=== PATIENT | male | born 1950 | race Two or more races ===

== ENCOUNTER 2017-02-23 03:28 | Emergency (ER) | payer MEDICARE, OTHER ==
[~2017-02-23] VITALS: Ht 177.8 cm; Wt 68.0 kg
--- NOTE | 2017-02-23 03:30 | NUR ---
TO BED 8 A 66 YO MALE PT BIBA#860, PT PER EMS WAS FOUND SLEEPING AT THE SUBWAY WITH A BOTTLE OF VODKA, +ETOH. PATIENT IS ALERT AND RESPONSIVE. VSS. NAD NOTED. NONDIAPHORETIC. PLACED ON VS MONITORING. SAFETY AND COMFORT MEASURES IN PLACE.
--- NOTE | 2017-02-23 04:03 | NUR ---
patient in radiology at this time.
--- NOTE | 2017-02-23 05:48 | NUR ---
patient is comfortably sleeping at this time. vss. nad noted.
--- NOTE | 2017-02-23 07:30 | NUR ---
PT WAS PUT ON RESTRAINTS, FOR DISRUPTING MEDICAL CARE AND RESTLESSNESS. MD ORDER OBTAINED.
--- NOTE | 2017-02-23 07:38 | NUR ---
Chris adame in ED - 02/23/17 at 1419 by EFREN Patient is resting comfortably in bed with eyes closed. Easily aroused. VSS
--- NOTE | 2017-02-23 09:30 | NUR ---
ACUTE MEDICAL RESTRAINTS DISCONTINUED, PT IS IN BED, RESTING COMFORTABLY, VSS, CIRCULATION CHECKED. SKIN INTACT.
--- NOTE | 2017-02-23 11:30 | NUR ---
Patient is resting comfortably in bed with eyes closed. Easily aroused. VSS
--- NOTE | 2017-02-23 15:28 | NUR ---
Patient is resting comfortably in bed with eyes closed. Easily aroused. VSS
--- NOTE | 2017-02-23 17:54 | NUR ---
MEAL TRAY GIVEN TO PT.
--- NOTE | 2017-02-23 19:01 | NUR ---
PT ALERT AND ORIENTED X 3, AMBULATORY WITH STEADY GAIT,
--- NOTE | 2017-02-23 19:03 | NUR ---
PT AMBULATED TO RESTROOM WITHOUT ASSISTANCE
[2017-02-23 19:21] VITALS: BP 120/67
== END 2017-02-23 19:22 | disposition home or self-care (01) ==
LOC: ER 03:29
DX: F10.10 Alcohol abuse, uncomplicated (principal); I10 Essential (primary) hypertension; E78.00 Pure hypercholesterolemia, unspecified; R41.82 Altered mental status, unspecified
CPT/HCPCS: 70450; 82962; 99284; A4606; Z7610

== ENCOUNTER 2017-07-14 03:29 | Emergency (ER) | payer OTHER ==
[~2017-07-14] VITALS: Ht 170.2 cm; Wt 78.9 kg
--- NOTE | 2017-07-14 03:35 | NUR ---
PT TO ER BED 14. BIBRA 860 FOR RIGHT RIB PAIN S/P GLF EALIER TODAY DENIES KO. NOTED ETOH. PT PLACED ON TOP LIFT SCOURER. VSS/RESP EVEN UNLABORED/NAD NOTED/SKIN WARM AND DRY/DENIES N-V-D/AFEBRILE/AOX4. AWAITING MD HOYOS.
--- NOTE | 2017-07-14 04:28 | NUR ---
XRAY AT BEDSIDE.
--- NOTE | 2017-07-14 07:13 | NUR ---
ENDORSED TO MICHELLE ELLIS FOR ZAINAB.
--- NOTE | 2017-07-14 07:14 | NUR ---
RECEIVED REPORT FOR ZAINAB.
--- NOTE | 2017-07-14 11:30 | NUR ---
PATIENT A/OX 3, AMBULATING WITH WALKER WITH STEADY GAIT. NO COMPLICATIONS NOTED. CLEAR FOR DISCHARGE PER MD.
--- NOTE | 2017-07-14 11:44 | NUR ---
Patient discharged to home in stable condition. Written and verbal after care instructions given. Patient verbalizes understanding of instruction. Provided bus tokens for transportation.
[2017-07-14 11:54] VITALS: BP 114/72
== END 2017-07-14 11:44 | disposition home or self-care (01) ==
LOC: ER 03:30
DX: F10.129 Alcohol abuse with intoxication, unspecified (principal); S20.211A Contusion of right front wall of thorax, initial encounter; I10 Essential (primary) hypertension; E78.00 Pure hypercholesterolemia, unspecified; Z98.890 Other specified postprocedural states; W18.00XA Striking against unspecified object with subsequent fall, initial encounter; Y93.89 Activity, other specified; Y92.89 Other specified places as the place of occurrence of the external cause; Y99.8 Other external cause status
CPT/HCPCS: 71100-TC; A4606; J7030; Z7610

== ENCOUNTER 2019-01-17 03:44 | Inpatient (IN) | payer MEDICAID, OTHER ==
[~2019-01-17] VITALS: Ht 175.3 cm; Wt 74.8 kg
--- NOTE | 2019-01-17 04:10 | NUR ---
PT BIBRA FROM [facility] FOR ETOH INTOXICATION. PT IS CONFUSED. A/OX2. ON ROOM AIR, BREATHING EVEN AND UNLABORED. UNCLEAR SPEECH NOTED. IN NO ACUTE RESPIRATORY DISTRESS. CONNECTED TO PULSE OX AND PAPER SORTER
[2019-01-17] MEDS ORDERED: PANTOPRAZOLE 40 MG VIAL ONE (04:29)
[2019-01-17] MEDS ORDERED: PANTOPRAZOLE 80 MG in IV NS 0.9% 500 ML IV ONE (04:30)
[2019-01-17] MEDS ORDERED: IV NS 0.9% 1,000 ML BAG IV ONE (04:30)
[2019-01-17 04:33] LABS: OCCULT BLOOD STOOL POSITIVE (NEGATIVE)
[2019-01-17 05:05] LABS: BASOPHILS # (AUTO) 0.1 /CMM (0.0-0.2); BASOPHILS % (AUTO) 1.2 % (0.0-2.0); EOSINOPHILS % (AUTO) 2.4 % (0.0-6.0); HEMATOCRIT 40 % (39-51); HEMOGLOBIN 13.5 g/dL (13.5-17.5); LYMPHOCYTES # (AUTO) 1.9 /CMM (0.8-4.8); LYMPHOCYTES % (AUTO) 36.7 % (20.0-44.0); MEAN CORPUSCULAR HGB CONC 34 g/dl (31.0-36.0); MEAN CORPUSCULAR VOLUME 102 fL (80-96); MONOCYTES # (AUTO) 0.6 /CMM (0.1-1.30); MONOCYTES % (AUTO) 11.9 % (2.0-12.0); NEUTROPHILS # (AUTO) 2.5 /CMM (1.8-8.9); NEUTROPHILS % (AUTO) 47.8 % (43.0-81.0); PLATELET COUNT (AUTO) 107 /CMM (150-450); RED BLOOD CELL COUNT(AUTO) 3.95 MIL/uL (4.5-6.0); WHITE BLOOD COUNT (AUTO) 5.3 K/uL (4.3-11.0)
[2019-01-17 05:16] LABS: ALBUMIN 3.7 g/dL (3.4-5.0); BILIRUBIN,DIRECT 0.1 mg/dL (0.0-0.2); BILIRUBIN,TOTAL 0.2 mg/dL (0.2-1.0); CALCIUM, SERUM 9.4 mg/dL (8.5-10.1); CREATININE 1.6 mg/dL (0.6-1.3); POTASSIUM 2.8 mmol/L (3.5-5.1); SALICYLATE 1.5 mg/dL (2.8-20.0); TOTAL PROTEIN, SERUM 8.4 g/dL (6.4-8.2)
[2019-01-17 05:25] LABS: THYROID STIMULATING HORMONE 1.318 uIU/mL (0.358-3.74)
--- NOTE | 2019-01-17 06:14 | NUR ---
REPORT GIVEN TO MARLENY MARTINEZ
[2019-01-17] MEDS ORDERED: Z GUARD REMEDY 2 OZ OINT TP PRN (06:30)
[2019-01-17] MEDS ORDERED: ZOLPIDEM TARTRATE 5 MG TABLET PO PRN (06:30)
[2019-01-17] MEDS ORDERED: MAG HYDROX/AL HYDROX/SIMETH 30 ML UDC PO PRN (06:30)
[2019-01-17] MEDS ORDERED: MAGNESIUM HYDROXIDE 30 ML UDC PO PRN (06:30)
[2019-01-17] MEDS ORDERED: ONDANSETRON HCL/PF 4 MG/2 ML VIAL IVP PRN (06:30)
[2019-01-17] MEDS ORDERED: ACETAMINOPHEN 325 MG TABLET PO PRN (06:30)
[2019-01-17 06:32] VITALS: BP 141/83
--- NOTE | 2019-01-17 06:32 | NUR ---
PT MOVED TO ROOM 111 VIA ACLS PROTOCOL IN STABLE CONDITION.
--- NOTE | 2019-01-17 06:58 | NUR ---
RN ADMITTING NOTE RECEIVED PT FROM ER, ETOH 420, AOX1, NC@2L/PM, POSSIBLY ABLE TOLERATE R/A, NO FACIAL GRIMANCING NOTED, NOTED MINOR SKIN ISSUES, ON COMING RN TO TAKE PHOTOS, PT CLEANED, IV SITE LFA#18G, ALL ADMITTING ORDERS ENTERED, AM RN WILL CONT' PLAN OF CARE.
--- NOTE | 2019-01-17 07:57 | NUR ---
RN OPENING NOTES RECEIVED PT FROM RN WILL FOLLOW UP WITH ADMISSION PT IS CURRENTLY SLEEPING WITH EQUAL CHEST RISE AND FALL NO OBVIOUS SIGNS OF DISTRESS NOTED AT PRESENT TIME. PT IS EASILY AROUSABLE BUT CONFUSED AT PRESENT TIME. WILL CONTINUE TO MONITOR. BED IS LOCKED AND IN LOWEST POSITION WITH CALL LIGHT IN REACH.
[2019-01-17 08:00] VITALS: BP 113/71
[2019-01-17] MEDS: POTASSIUM CL. PREMIX PERIPHER. 50 ML IV SCH ×3 (08:30→10:22)
[2019-01-17] MEDS: PANTOPRAZOLE 40 MG VIAL IV SCH ×2 (09:12→17:14)
[2019-01-17] MEDS: IV NS 0.9% 1,000 ML IV PRN ×2 (09:17→23:02)
--- NOTE | 2019-01-17 10:02 | NUR ---
DURING ASSESSMENT PT IS AWAKES AND CONTINUES TO FALL BACK ASLEEP WILL CONTINUE TO MONITOR
--- NOTE | 2019-01-17 11:00 | NUR ---
PT REMOVED IV. ANOTHER IV INSERTED IN RIGHT WRIST PT REFUSES IV FLUID AT PRESENT TIME. STATES HE NEEDS HIS WALKER AND GLASSES CAUSE HE HAS GLAUCOMA. PT WAS TOLD TO CALL STAFF BEFORE GETTING OUT OF BED HANDED THE CALL LIGHT PT IS CURRENTLY ASLEEP AT THE MOMENT.
[2019-01-17 11:56] LABS: HEMOGLOBIN 11.8 g/dL (13.5-17.5)
[2019-01-17 16:00] VITALS: BP 133/94
[2019-01-17] MEDS ORDERED: POTASSIUM CHLORIDE 20 MEQ TAB.PRT.SR PO ONE (16:30)
[2019-01-17] MEDS: LORAZEPAM INJ 2 MG/ML VIAL IV PRN (17:03)
--- NOTE | 2019-01-17 18:50 | NUR ---
RN CLOSING NOTES PT IN BED EATING DINNER. PT STILL REFUSING IV FLUIDS WANTS TO DRINK WATER INSTEAD. PT GIVING MORE HX HOWEVER STILL UNDER THE INFLUENCE AND BEGINS TO STATE HE NEEDS HIS GLASSES HE HAS GLAUCOMA. PT IS STILL A POOR HISTORIAN AT PRESENT TIME NEED TO FOLLOW UP PT BEGINS TO BECOME MORE ALERT. PT DENIES PAIN OR SOB AT PRESENT TIME. REPORT WILL BE GIVEN TO COAT JOINER LOCKSTITCH RN FOR ZAINAB.
--- NOTE | 2019-01-17 19:44 | NUR ---
MS RN RECEIVE PT IN BED PT AWAKE A/O X 4, STABLE AND NOT IN DISTRESS. NO SOB. NO C/O OF PAIN. WILL CONT TO MTR
[2019-01-17 20:00] VITALS: BP 145/64
[2019-01-17 21:25] VITALS: BP 145/64
[2019-01-18] MEDS: LORAZEPAM INJ 2 MG/ML VIAL IV PRN ×3 (01:03→20:31)
[2019-01-18 04:00] VITALS: BP 156/93
--- NOTE | 2019-01-18 06:12 | NUR ---
MS RN PT SLEPT WELL THROUGHOUT THE NIGHT. NO NAUSEA AND VOMITING AT THIS TIME. NO S/S OF WITHDRAWAL AT THIS TIME. PT COOPERATIVE WITH CARE. AM CARE RENDERED, KEPT CLEAN, DRY AND COMFORTABLE AT ALL TIMES. NEEDS ATTENDED AND ANTICIPATED. NO C/O OF PAIN. WILL ENDORSE TO NEXT SHIFT.
[2019-01-18] MEDS ORDERED: BRIN10DR EACHEYE (06:36)
[2019-01-18] MEDS ORDERED: TRAV5DRO EACHEYE (06:36)
[2019-01-18] MEDS ORDERED: BRIM5DRO11 OP (06:36)
--- NOTE | 2019-01-18 06:47 | NUR ---
PAGED AND SPOKE RELAYED HOSPITALIST DREW SCHWARTZ EYE DROPS. RECONCILED MEDICATION PT REMEMBERS HIS EYE DROP AND WANTED TO HAVE THEM. PER DREW HE WILL RECONCILE IT. NOTED AND WILL ENDORSE TO FF UP Addendum: 01/18/19 at 0706 by CORI SALEH RN PER DREW HE WILL LOOK AT HIS HOME MEDICATION
[2019-01-18 07:01] LABS: BASOPHILS % (AUTO) 0.7 % (0.0-2.0); EOSINOPHILS % (AUTO) 4.2 % (0.0-6.0); HEMATOCRIT 33 % (39-51); HEMOGLOBIN 11.3 g/dL (13.5-17.5); LYMPHOCYTES # (AUTO) 0.9 /CMM (0.8-4.8); LYMPHOCYTES % (AUTO) 17.9 % (20.0-44.0); MEAN CORPUSCULAR HGB CONC 34 g/dl (31.0-36.0); MEAN CORPUSCULAR VOLUME 100 fL (80-96); MONOCYTES # (AUTO) 0.5 /CMM (0.1-1.30); MONOCYTES % (AUTO) 10.1 % (2.0-12.0); NEUTROPHILS # (AUTO) 3.5 /CMM (1.8-8.9); NEUTROPHILS % (AUTO) 67.1 % (43.0-81.0); PLATELET COUNT (AUTO) 84 /CMM (150-450); RED BLOOD CELL COUNT(AUTO) 3.34 MIL/uL (4.5-6.0); WHITE BLOOD COUNT (AUTO) 5.2 K/uL (4.3-11.0)
[2019-01-18 07:40] LABS: ALBUMIN 2.9 g/dL (3.4-5.0); BILIRUBIN,DIRECT 0.2 mg/dL (0.0-0.2); CALCIUM, SERUM 8.3 mg/dL (8.5-10.1); CREATININE 0.8 mg/dL (0.6-1.3); PHOSPHORUS 2.8 mg/dL (2.5-4.9); POTASSIUM 3.5 mmol/L (3.5-5.1); TOTAL PROTEIN, SERUM 6.7 g/dL (6.4-8.2)
[2019-01-18 07:43] LABS: MAGNESIUM 1.2 mg/dL (1.8-2.4)
[2019-01-18 08:00] VITALS: BP 158/104
--- NOTE | 2019-01-18 08:09 | NUR ---
MS RN NOTES RECEIVED PT SITTING IN BED. A/OX4 ON ROOM AIR 92%. NO SIGNS OF DISCOMFORT AND PAIN NOTED AT THIS TIME. PT HAS R HAND SL PATENT AND FLUSHED WELL. SAFETY MEASURES IMPLEMENTED. BED AT THE LOWEST POSITION LOCKED, CALL LIGHT WITHIN REACH. WILL CONTINUE TO MONITOR.
[2019-01-18 08:27] LABS: CREATININE, URINE 134.5 MG/DL (30.0-125.0)
[2019-01-18] MEDS: PANTOPRAZOLE 40 MG VIAL IV SCH ×2 (08:39→17:42)
[2019-01-18 09:01] LABS: THYROID STIMULATING HORMONE 0.456 uIU/mL (0.358-3.74)
[2019-01-18 09:09] LABS: APPEARANCE,URINE Clear (CLEAR); BILIRUBIN,URINE Negative (NEGATIVE); BLOOD, URINE Negative Ery/uL (NEGATIVE); COLOR,URINE Yellow (YELLOW); KETONES,URINE Negative (NEGATIVE); LEUKOCYTE ESTERASE ,URINE Negative (NEGATIVE); NITRITE, URINE Negative (NEGATIVE); PROTEIN,URINE Negative (NEGATIVE); UGLUCOSE Negative (NEGATIVE)
[2019-01-18 09:53] LABS: EOSINOPHIL,URINE None Seen
[2019-01-18] MEDS: Magnesium 1GM/D5W 100ML PREMIX 100 ML IV SCH ×4 (11:42→16:16)
[2019-01-18 12:00] VITALS: BP 152/98
--- NOTE | 2019-01-18 12:31 | NUR ---
MS RN NOTES PER PATIENT STATEMENT HE IS FEELING ANXIOUS AND HAVE SHAKY HANDS AND FEET.REQUESTED ATIVAN PRN.
[2019-01-18 16:00] VITALS: BP 152/98
[2019-01-18 19:30] LABS: SERUM AMMONIA 17 umol/L (11-32)
[2019-01-18 19:35] LABS: LIPASE 308 U/L (73-393)
[2019-01-18 19:40] LABS: IRON, SERUM 56 ug/dl (50-175); TOTAL IRON BINDING CAPACITY 238 ug/dl (250-450)
--- NOTE | 2019-01-18 19:40 | NUR ---
MS RN NOTES, PATIENT IN BED ASLEEP AT THIS TIME, BUT EASILY AROUSES VERBAL/TACTILE STIMULI, AT ROOM AIR NO SOB/ACUTE DISTRESS OR DISCOMFORT NOTED, IV SITE DISLODGE, WILL START ANOTHER IV, ALL SAFETY MEASURES IMPLEMENTED, BED LOCKED AND IN LOWEST POSITION LOCKED, CALL LIGHT WITHIN REACH, WILL CONTINUE TO MONITOR CLOSELY.
[2019-01-18 20:00] VITALS: BP 157/100
--- NOTE | 2019-01-18 20:12 | NUR ---
MS RN NOTES PT IN BED SITTING COMFORTABLY. A/O X4 NO SIGNS OF SOB AND DISCOMFORT NOTED. COLLABORATED WITH DR. HERNANDEZ FOR HOME MEDICATION (EYE DROP) VIA PHONE CALL. ALL SAFETY MEASURES IMPLEMENTED, BED AT THE LOWEST POSITION LOCKED CALL LIGHT WITHIN REACH. RIGHT HAND SL FLUSHED WELL AND PATENT. REPORT GIVEN TO MARINE WORKSITE WELLNESS PRACTITIONER NURSE FOR ZAINAB.
[2019-01-19] VITALS (7 sets, daily range): BP systolic 126–178; BP diastolic 87–119
[2019-01-19] MEDS: HYDROCODONE/APAP 5/325MG 1 EACH TABLET PO PRN ×2 (04:31→21:07)
[2019-01-19] MEDS: LORAZEPAM INJ 2 MG/ML VIAL IV PRN ×3 (05:39→21:07)
--- NOTE | 2019-01-19 06:56 | NUR ---
MS RN NOTES, PATIENT IN BED AWAKE AT TIME, A/O X4 ABLE TO VERBALIZED NEED AND CONCERNS, AT ROOM AIR BREATHING AND UNLABORED, NO SOB/ACUTE DISTRESS OR DISCOMFORT NOTED, NO SIGNIFICANT CHANGE IN CONDITION DURING THE NIGHT, BED LOCKED AND IN LOWEST POSITION LOCKED, CALL LIGHT WITHIN REACH, WILL CONTINUE TO MONITOR CLOSELY.
--- NOTE | 2019-01-19 07:58 | NUR ---
MS RN NOTES RECEIVED PT IN BED SITTING A/OX 4. PT IS HAVING BREAKFAST. ALL SAFETY MEASURES IMPLEMENTED, BED AT LOWEST POSITION AND LOCKED, CALL LIGHT WITHIN REACH. IV SITE PATENT @75ML/H NS RUNNING. WILL CONTINUE TO MONITOR PT.
[2019-01-19] MEDS: PANTOPRAZOLE 40 MG VIAL IV SCH ×2 (08:15→18:25)
[2019-01-19 14:29] LABS: BASOPHILS % (AUTO) 0.7 % (0.0-2.0); EOSINOPHILS % (AUTO) 3.6 % (0.0-6.0); HEMATOCRIT 35 % (39-51); HEMOGLOBIN 12.2 g/dL (13.5-17.5); LYMPHOCYTES # (AUTO) 0.8 /CMM (0.8-4.8); LYMPHOCYTES % (AUTO) 20.2 % (20.0-44.0); MEAN CORPUSCULAR HGB CONC 34 g/dl (31.0-36.0); MEAN CORPUSCULAR VOLUME 101 fL (80-96); MONOCYTES # (AUTO) 0.5 /CMM (0.1-1.30); MONOCYTES % (AUTO) 12.1 % (2.0-12.0); NEUTROPHILS # (AUTO) 2.4 /CMM (1.8-8.9); NEUTROPHILS % (AUTO) 63.4 % (43.0-81.0); PLATELET COUNT (AUTO) 94 /CMM (150-450); RED BLOOD CELL COUNT(AUTO) 3.52 MIL/uL (4.5-6.0); WHITE BLOOD COUNT (AUTO) 3.9 K/uL (4.3-11.0)
[2019-01-19 14:39] LABS: CALCIUM, SERUM 8.7 mg/dL (8.5-10.1); CREATININE 1.1 mg/dL (0.6-1.3); MAGNESIUM 1.6 mg/dL (1.8-2.4); PHOSPHORUS 2.8 mg/dL (2.5-4.9); POTASSIUM 3.4 mmol/L (3.5-5.1)
--- NOTE | 2019-01-19 15:05 | NUR ---
MS RN NOTES CONSENT FOR EGD AND COLONOSCOPY NOT OBTAINED. PT IS DC TO [facility].
--- NOTE | 2019-01-19 15:45 | NUR ---
MS RN NOTES PT REQUESTED ATIVAN FOR ANXIETY, TEACHING PROVIDED RELATED TO SIDE EFFECTS OF MED.
[2019-01-19 17:18] LABS: EOSINOPHILS % (MANUAL) 3 % (0-4); LYMPHOCYTES % (MANUAL) 15 % (16-48); MONOCYTES % (MANUAL) 7 % (0-11.0); NEUTROPHILS % (MANUAL) 75 (42-76)
--- NOTE | 2019-01-19 19:50 | NUR ---
MS RN NOTES, PATIENT IN BED AWAKE AT THIS TIME, A/O 4 ABLE TO VERBALIZED NEED AND CONCERNS, AT ROOM AIR NO SOB/ACUTE DISTRESS OR DISCOMFORT NOTED, IV SITE RIGHT HAND PATENT AND INTACT, PATIENT WILL BE TRANSFERRED TO [facility] FOR CONTINUATION OF CARE, AWAITING FOR TRANSPORTATION, ACCORDING TO PRIOR NURSE REPORT THEY WILL BE HERE AT 1999, ALL SAFETY MEASURES IMPLEMENTED, BED LOCKED AND IN LOWEST POSITION LOCKED, CALL LIGHT WITHIN REACH, WILL CONTINUE TO MONITOR CLOSELY.
[2019-01-19] MEDS ORDERED: PEG 3350/NA SULF,BICARB,CL/KCL 4,000 ML BOTTLE PO ONE (20:00)
[2019-01-19] MEDS ORDERED: MAGNESIUM CITRATE 296 ML BOTTLE PO ONE (20:00)
--- NOTE | 2019-01-19 20:09 | NUR ---
MS RN NOTES REPORT GIVEN TO MICHELLE GRIFFIN AT [facility]. PT WILL BE TRANSFERRED TO ROOM 204 BED B. PT IS STABLE A/OX4. NO SIGNS OF PAIN AND DISCOMFORT NOTED AT THIS TIME. PT WILL BE TRANSFERRED BY AMBULANCE. REPORT GIVEN TO MARINE LAMB.
--- NOTE | 2019-01-19 21:10 | NUR ---
RN NOTES, AMBULANCE AT THE HOSPITAL AT THIS TIME TO CODE AND TEST CLERK PATIENT, AND TRANSFERRED TO [place], AND BLOOD PRESSURE NOTED 117/110, HR 71. PATIENT STATED FEELING ANXIOUS AND HAVE HEADACHE, ATIVAN AND NORCO ADMINISTERED ORDERED, WILL CONTINUE TO MONITOR CLOSELY.
[2019-01-19] MEDS ORDERED: hydrALAZINE HCL 25 MG TABLET PO ONE (22:00)
--- NOTE | 2019-01-19 22:00 | NUR ---
RN NOTED, UPON REASSESSMENT OF BLOOD PRESSURE, BLOOD PRESSURE NOTED 1179/119, 72, INFORMED AZEVEDO AND RECEIVED A NEW ORDER FOR HYDRALAZINE 25MG PO ONCE NOW, ADMINISTERED AT THIS TIME, WILL CONTINUE TO MONITOR CLOSELY.
--- NOTE | 2019-01-19 23:15 | NUR ---
RN NOTED, BLOOD PRESSURE RE-CHECK AND CONTINUE 177/110. 71, INFORMED AZEVEDO AND RECEIVED A NEW ORDER FOR CLONIDINE 0.1MG PO X1, ADMINISTERED ORDERED, NOW AT THIS TIME, WILL CONTINUE TO MONITOR CLOSELY.
[2019-01-19] MEDS ORDERED: CLONIDINE HCL 0.1 MG TABLET PO ONE (23:30)
--- NOTE | 2019-01-19 23:45 | NUR ---
RN NOTES, RECHECK BLOOD PRESSURE AND BP 160/103, REPORT GIVEN TO MICHELLE HUERTA IN [place], AND REPORTED THAT BLOOD PRESSURE IS ALREADY TRENDING DOWN AND ALL THE MEDICATIONS ADMINISTERED, PER DEANNA OK TO TRANSFER THE PATIENT.
--- NOTE | 2019-01-19 23:51 | NUR ---
RN NOTES, PATIENT LEAVING AT THIS TIME IN COMPANY OF 3 DIRECTOR OF INCOME [employer] VIA [place], PATIENT DENIES PAIN OR DISCOMFORT AT THIS TIME, NO HEADACHE OR ANY SYMPTOMS REPORTED AT THIS TIME, PATIENT A/O X4, AWARE THAT HES GOING TO [place] TO CONTINUE CARE, AND , HES GOING FOR CONTINUATION OF CARE TO [facility], ALL BELONGINGS TAKEN BY PATIENT.
[2019-01-20] MEDS ORDERED: NA PHOS,M-B/NA PHOS,DI-BA 1 EA ENEMA RC PRN (08:00)
== END 2019-01-19 23:52 | disposition short-term general hospital (02) | DRG 253 ==
LOC: ER 03:47 → TELE1 05:50 → MEDSG1 06:36
PROVIDERS: ADMIT Internal Medicine; ATTEND Internal Medicine
DX: K92.2 Gastrointestinal hemorrhage, unspecified (principal); N17.0 Acute kidney failure with tubular necrosis; G92 Toxic encephalopathy; D69.6 Thrombocytopenia, unspecified; E86.9 Volume depletion, unspecified; R74.0 Nonspecific elevation of levels of transaminase and lactic acid dehydrogenase [LDH]; E87.6 Hypokalemia; F10.10 Alcohol abuse, uncomplicated; D75.89 Other specified diseases of blood and blood-forming organs; K70.10 Alcoholic hepatitis without ascites; J44.9 Chronic obstructive pulmonary disease, unspecified; H40.9 Unspecified glaucoma; D53.9 Nutritional anemia, unspecified; I10 Essential (primary) hypertension
CPT/HCPCS: 36415; 71045-TC; 76700-TC; 80048-TC; 80061-TC; 80076-TC; 81000-TC; 82140-TC; 82272-TC; 82570-TC; 82728-TC; 83540-TC; 83690-TC; 83735-TC; 84100-TC; 84155-TC; 84300-TC; 84443-TC; 85025-TC; 85027-TC; 85730-TC; 86706; 86803; 86850-TC; 87081-TC; 87340; 94799-TC; C9113; G0378; G0480; J2060; J3475; J3480; J7030